=== PATIENT | male | born 1985 | race Caucasian/White ===

== ENCOUNTER 2022-03-11 21:06 | Inpatient (IN) | payer BC ==
[~2022-03-11] VITALS: Ht 172.7 cm; Wt 90.7 kg
[2022-03-11] MEDS ORDERED: AMIODARONE HCL 150 MG/100 ML BAG IV ONE (21:30)
[2022-03-11] MEDS ORDERED: MULTIVITAMINS- 12 INJECTION 10 ML, FOLIC ACID MDV 1 MG, THIAMINE HCL INJ 100 MG in SODI... IV ONE (21:30)
[2022-03-11] MEDS ORDERED: AMIODARONE 900MG 900 MG in Premix Bag 1 BAG IV SCH (21:30)
[2022-03-11] MEDS ORDERED: AMIODARONE 900MG 500 ML IV ONE (22:01)
[2022-03-11 22:09] LABS: BASOPHILS % 0.5 % (0.0-1.0); EOSINOPHILS # (AUTO) 0.1 (0.0-0.4); EOSINOPHILS % 2.4 % (0.0-6.0); HEMATOCRIT 43.4 % (38.2-49.6); HEMOGLOBIN 14.1 g/dL (14.0-18.0); LYMPHOCYTES % 18.3 % (18.0-39.1); MEAN CORPUSCULAR HEMOGLOBIN 33.3 pg (28-32); MEAN CORPUSCULAR HGB CONC 32.5 g/dL (31-35); MEAN CORPUSCULAR VOLUME 102.4 fL (81-99); MONOCYTES # (AUTO) 0.8 (0.2-0.8); MONOCYTES % 15.1 % (4.4-11.3); NEUTROPHILS # (AUTO) 3.5 (2.1-6.9); NEUTROPHILS % 63.3 % (38.7-80.0); PLATELET COUNT 205 x10e3/uL (140-360); RED BLOOD COUNT 4.24 x10e6/uL (4.3-5.7); RED CELL DISTRIBUTION WIDTH 11.9 % (11.7-14.4)
[2022-03-11 22:17] LABS: AMPHETAMINES SCREEN,URINE NEGATIVE (NEGATIVE); BENZODIAZEPINES SCREEN,URINE NEGATIVE (NEGATIVE); PHENCYCLIDINE SCREEN,URINE NEGATIVE (NEGATIVE)
[2022-03-11 22:30] LABS: INR 0.88; PROTHROMBIN TIME 12.8 seconds (11.9-14.5)
[2022-03-11 22:31] LABS: ALBUMIN 4.1 g/dL (3.5-5.0); ALBUMIN/GLOBULIN RATIO 1.1 (0.8-2.0); ANION GAP 21.3 mmol/L (8-16); CALCIUM 9.2 mg/dL (8.4-10.2); CREATININE, SERUM 0.95 mg/dL (0.72-1.25); PARTIAL THROMBOPLASTIN TIME 30.8 seconds (23.8-35.5); POTASSIUM 3.3 mmol/L (3.5-5.1)
[2022-03-11] MEDS ORDERED: SODIUM CHLORIDE FLUSH 10 ML SYR INJ PRN (23:00)
[2022-03-11] MEDS ORDERED: ONDANSETRON HCL INJ 2MG/ML 2ML 2 MG/ML VIAL IV PRN (23:00)
[2022-03-11 23:13] LABS: CREATINE KINASE MB 1.5 ng/mL (0-5.0)
[2022-03-12] VITALS (25 sets, daily range): BP systolic 113–178; BP diastolic 61–110
[2022-03-12 07:06] LABS: CREATINE KINASE MB 0.9 ng/mL (0-5.0)
[2022-03-12 14:17] LABS: CREATINE KINASE MB 0.7 ng/mL (0-5.0)
[2022-03-12] MEDS ORDERED: AMIODARONE HCL 200 MG TAB PO SCH ×3 (17:45→18:15)
[2022-03-12] MEDS ORDERED: METOPROLOL TARTRATE INJ 1 MG/ML VIAL IV PRN (19:45)
[2022-03-13 00:20] VITALS: BP 138/94
[2022-03-13 04:39] LABS: BASOPHILS % 0.5 % (0.0-1.0); EOSINOPHILS # (AUTO) 0.1 (0.0-0.4); EOSINOPHILS % 3.5 % (0.0-6.0); HEMATOCRIT 37.9 % (38.2-49.6); HEMOGLOBIN 12.8 g/dL (14.0-18.0); LYMPHOCYTES # (AUTO) 0.7 (1.0-3.2); LYMPHOCYTES % 18.6 % (18.0-39.1); MEAN CORPUSCULAR HEMOGLOBIN 32.9 pg (28-32); MEAN CORPUSCULAR HGB CONC 33.8 g/dL (31-35); MONOCYTES # (AUTO) 0.3 (0.2-0.8); MONOCYTES % 8.6 % (4.4-11.3); NEUTROPHILS # (AUTO) 2.5 (2.1-6.9); NEUTROPHILS % 68.5 % (38.7-80.0); PLATELET COUNT 189 x10e3/uL (140-360); RED BLOOD COUNT 3.89 x10e6/uL (4.3-5.7); RED CELL DISTRIBUTION WIDTH 12.3 % (11.7-14.4)
[2022-03-13 04:45] LABS: MEAN CORPUSCULAR VOLUME 97.4 fL (81-99)
[2022-03-13 05:01] LABS: ANION GAP 14.4 mmol/L (8-16); CALCIUM 9.8 mg/dL (8.4-10.2); CREATININE, SERUM 0.88 mg/dL (0.72-1.25); POTASSIUM 3.4 mmol/L (3.5-5.1)
[2022-03-13 05:24] VITALS: BP 133/92
[2022-03-13 06:42] LABS: CREATINE KINASE MB 0.4 ng/mL (0-5.0)
[2022-03-13 08:11] VITALS: BP 133/92
[2022-03-13 08:14] VITALS: BP 136/99
[2022-03-13 08:15] VITALS: BP 132/90
[2022-03-13] MEDS ORDERED: AMIODARONE HCL 200 MG TAB PO SCH (09:00)
[2022-03-13] MEDS ORDERED: ONDANSETRON ODT4 MG PO (09:40)
[2022-03-13] MEDS ORDERED: AMIODARONE HCL200 MG PO (09:40)
== END 2022-03-13 10:42 | disposition home or self-care (01) | DRG 309 ==
LOC: ER 21:14 → ERHOLD 23:06 → ICU 23:56 → MED/SURG 03-12 20:35
PROVIDERS: ADMIT Internal Medicine; ATTEND Internal Medicine
DX: I48.91 Unspecified atrial fibrillation (principal); E87.20 Acidosis, unspecified; F10.120 Alcohol abuse with intoxication, uncomplicated; F12.90 Cannabis use, unspecified, uncomplicated; Y90.6 Blood alcohol level of 120-199 mg/100 ml; F14.99 Cocaine use, unspecified with unspecified cocaine-induced disorder; F16.10 Hallucinogen abuse, uncomplicated; Z20.822 Contact with and (suspected) exposure to COVID-19; I10 Essential (primary) hypertension
CPT/HCPCS: 36415; 71045; 80048; 80053; 80061; 80307; 80320; 82550; 82553; 83735; 84484; 85025; 85610; 85730; 93005; 94799; 99284; J3411; J7030